=== PATIENT | male | born 1960 | race Caucasian/White ===

== ENCOUNTER 2016-05-29 18:07 | Inpatient (IN) | payer MEDICAID, OTHER ==
[~2016-05-29] VITALS: Ht 188 cm; Wt 70.5 kg
[2016-05-29 18:10] VITALS: BP 139/91; PULSE 94; RESP 18; O2SAT 99
[2016-05-29] MEDS ORDERED: Multivitamin w/Vit K Inj 10 ML, Thiamine Inj 100 MG, Folic Acid Inj 1 MG, Magnesium Sul... IV ONE ×5 (21:26)
--- NOTE | 2016-05-29 21:26 | ED.REPORT ---
HPI-Overdose/Alcohol Toxicity Date of Service May 29, 2016 ED Provider: Delta Gaviria MD Patient is a 56 year old male with a history of alcohol abuse, polysubstance abuse, and hepatitis C who presents to the ED requesting assistance detoxing from alcohol, last consuming alcohol yesterday evening. Patient reports reducing his alcohol consumption the day prior to yesterday. The patient typically consumes a half gallon of hard alcohol daily. Patient states that he last received treatment for his alcohol abuse 3-4 years ago. Patient denies previous hospital admission for alcohol withdrawal but states that he did once have an alcohol withdrawal seizure. Patient admits that he also used methamphetamine 3 days ago. The patient admits to auditory hallucinations, which he states are pleasant. He denies thoughts of harming himself or others. Patient admits to nausea, diaphoresis, shaking and anxiety but denies vomiting or diarrhea. Nursing Notes Stated Complaint: DETOX Chief Complaint: Substance Abuse Nursing Notes Reviewed: Yes Allergies: Coded Allergies: No Known Allergies (Unverified Allergy, Unknown, 05/29/16) Scheduled Amitriptyline (Amitriptyline) 50 Mg Tab 50 MG PO HS General Time Seen by Provider: 21:29 Chief Complaint Other (alcohol detox) Hx Obtained From: Patient Arrived By: Walk-in Onset Occurred: Yesterday (evening) Symptom Duration: Since onset Severity: Current: No pain currently Severity: Maximum: No pain Recent Healthcare: No recent doctor visit, No recent hospitalization Similar Sx Previous: Yes Past Medical History Past Medical History hepatitis C heroin and methamphetamine abuse alcohol abuse with prior alcohol withdrawal seizure Past Surgical History none reported Social History Admits to using methamphetamine. No longer uses IV heroin. Alcohol Use: >5 per day Drug Use: IV drugs, Meth Other Social History: Good social support, Local resident Ambulatory Status Independent Review of Systems GI: Reports: Nausea, Denies: Abdominal pain, Vomiting Skin: Reports Diaphoresis Neurologic: Reports: Shaking, Denies: Seizure Psychiatric: Reports: Anxiety, Hallucinations, auditory, Denies: Homicidal ideation, Suicidal ideation Complete sys rev & neg: except as marked. Physical Exam Initial Vital Signs Vital Signs (First) Date Time Temp Pulse Resp B/P Pulse Ox O2 Delivery O2 Flow Rate FiO2 05/29/16 18:10 36.6 94 18 139/91 99 Room Air Initial VS: Reviewed, Vital signs abnormal Head / Eyes: Atraumatic, Normocephalic, PERRL ENT: Conjunctiva normal, No scleral icterus Neck: Supple, Full range of motion Extremities: Vascular intact, Neuro intact General/Constitutional: Awake, Alert Behavior: Positive: Anxious tremulous Respiratory / Chest: Breath sounds NL, Breath sounds = bilat, No respiratory distress, No rales, No rhonchi, No wheezing Cardiovascular: Heart rate NL, Regular rhythm, Heart sounds NL Abdomen: Soft, Non-tender liver margin 2-3cm below the costal margin Neurologic: Oriented X3, Speech NL, No motor deficits, No sensory deficits Psychiatric: Affect NL, Mood NL, Not suicidal, Not homicidal Skin: Warm Color / Condition: Positive: Diaphoresis present (mild) Wrist / Hand: Neurologic intact, Vascular intact 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 All else negative. Lab Results Interpretation Result Diagram: 05/29/16214405/29/162144 Test 05/29/16 21:34 05/29/16 21:45 05/29/16 22:00 Urine Color Yellow (YELLOW) Urine Appearance Clear (CLEAR,HAZY) Urine pH 6.0 (5.0-8.0) Urine Specific [place] 1.025 (1.003-1.035) Urine Protein 30mg/dL (NEG,TRACE) Urine Glucose (UA) Negativemg/dL (NEGATIVE) Urine Ketones Tracemg/dL (NEGATIVE) Urine Occult Blood Negative (NEGATIVE) Urine Nitrite Negative (NEGATIVE) Urine Bilirubin Negative (NEGATIVE) Urine Urobilinogen Normalmg/dL (NORMAL) Urine Leukocyte Esterase Negative (NEGATIVE) Urine RBC 0-2/hpf (0-2) Urine WBC 0-5/hpf (0-5) Urine Epithelial Cells Moderate/hpf (NONE-MOD) Urine Crystals None seen (NONE SEEN) Urine Bacteria Few/hpf (NONE-FEW) Urine Hyaline Casts Occasional/lpf (NONE) Urine Granular Casts Occasional (NONE SEEN) Urine Waxy Casts None seen (NONE SEEN) Urine Red Blood Cell Casts None seen (NONE SEEN) Urine White Blood Cell Casts None seen (NONE SEEN) Urine Mucus None seen (None Seen) Urine Trichomonas None seen (NONE SEEN) Urine Yeast None (NONE SEEN) Urinalysis Comment Amorphous sediment Urine Culture Reflexed Not indicated Hold Urine Received (Received) White Blood Count 12.1th/mm3 (3.8-10.1) Red Blood Count 5.05mil/mm3 (4.40-5.80) Hemoglobin 15.9g/dL (13.8-17.2) Hematocrit 46.5% (41.0-50.0) Mean Corpuscular Volume 92.1fL (81-100) Mean Corpuscular Hemoglobin 31.5pg (27.0-35.0) Mean Corpuscular Hemoglobin Concent 34.2% (32.0-37.0) Red Cell Distribution Width 13.2% (12.3-15.4) Platelet Count 231bil/L (150-400) Neutrophils (%) (Auto) 68.7% (40-74) Lymphocytes (%) (Auto) 21.7% (14-46) Monocytes (%) (Auto) 8.3% (4-12) Eosinophils (%) (Auto) 0.9% (0-5) Basophils (%) (Auto) 0.2% (0-3) Prothrombin Time 10.6sec (8.1-12.5) Prothromb Time International Ratio 0.99ratio Sodium Level 140mEq/L (134-144) Potassium Level 4.3mEq/L (3.5-5.2) Chloride Level 97mEq/L (97-108) Carbon Dioxide Level 24mmol/L (18-29) Blood Urea Nitrogen 22mg/dL (6-24) Creatinine 1.29mg/dL (0.76-1.27) Estimat Glomerular Filtration Rate 62mL/min (>59) Glucose Level 110mg/dL (60-99) Calcium Level 10.1mg/dL (8.5-10.1) Magnesium Level 2.2mg/dL (1.6-2.6) Total Bilirubin 0.9mg/dL (0.0-1.2) Aspartate Amino Transf (AST/SGOT) 42U/L (0-50) Alanine Aminotransferase (ALT/SGPT) 44U/L (0-44) Alkaline Phosphatase 93U/L (25-150) Troponin T 0.010ug/L (0.0-0.011) Total Protein 8.8g/dL (6.4-8.4) Albumin 5.0g/dL (3.4-5.0) Lipase 31U/L (13-60) Hold Purple Top Tube Received (Received) Hold Blue Top Tube Received (Received) Hold [place] Top Tube Received (Received) Lab Results Interpretation: Elevated white blood count ECG Interpretation ECG Interpretation: Normal Sinus Rhythm, Rate 81 Time: 22:05 Interpreted by: ED physician Normal ECG Interpretation: No acute ischemic changes Re-Eval/Medical Decision Med Decision/Clinical Course 56-year-old chronic alcoholic who also uses methamphetamine. He has been absent from alcohol for about a day and a half. He is starting to go into withdrawals and desires assistance with detox. There is no bed available at sobering services. Screening labs were done and are unremarkable. He was given a banana bag and his CYS score was monitored. He had an elevated C Mehdi and was given 2 doses of Ativan. His case was discussed with Dr. Collins and he will be admitted to the hospital service for further evaluation and treatment. Re-Evaluation/Progress : Time of Eval: 00:18 Patient Status: Condition worsened Re-Evaluation/Progress Note: Rechecked the patient. He is now showing further symptoms of withdrawal and there [facility] no bed available at [facility]. He now appears to be hallucinating and is picking at himself. Discussed his recent drug use. Patient will be admitted to the hospital for further care. He understands and agrees with this plan. All questions were addressed. Consultation : Referral / Consult Name: Remington Collins MD Consulted With: Hospitalist Call Returned at: 01:33 Information Security Manager: Will see patient, Agrees with eval, Agrees with plan, Accepts admit Note: Spoke with Dr. Collins, hospitalist, who agrees to accept admit. Counseled Regarding: Diagnosis, Lab results, Need for admission Discharge & Departure Impression: Primary Impression: Alcohol withdrawal Complication of substance-induced condition: with perceptual disturbance Qualified Code: F10.232 - Alcohol dependence with withdrawal with perceptual disturbance Additional Impressions: Methamphetamine abuse Alcohol abuse Disposition: ADMITTED TO HOSPITAL Discharge Condition All VS Reviewed: Yes Condition: Stable Referrals: Guru Rome DO (PCP) Scribe Attestation Portions of this note were transcribed by Nida Borjas. I, Dr. Gaviria personally performed the history, physical exam and medical decision-making; I reviewed and confirmed the accuracy of the information in the transcribed note. Signed by: Yue [place], 05/30/2016 0134 copies to: Guru Rome Howard L MD May 29, 2016 21:25 Nida Borjas May 29, 2016 21:35
[2016-05-29] MEDS ORDERED: Ondansetron 2 mg/mL 2 mL Inj IVPUSH PRN (21:30)
[2016-05-29 21:51] LABS: BASOPHILS % (AUTO) 0.2 % (0-3); EOSINOPHILS % (AUTO) 0.9 % (0-5); MONOCYTES % (AUTO) 8.3 % (4-12); Mean Corpuscular Hemoglobin 31.5 pg (27.0-35.0); Mean Corpuscular Volume 92.1 fL (81-100); NEUTROPHILS % (AUTO) 68.7 % (40-74); Platelet Count 231 bil/L (150-400)
[2016-05-29 21:57] LABS: APPEARANCE,URINE CLEAR (CLEAR,HAZY); COLOR,URINE YELLOW (YELLOW); OCCULT BLOOD,URINE NEGATIVE (NEGATIVE); UROBILINOGEN,URINE NORMAL (NORMAL)
[2016-05-29 22:11] LABS: TROPONIN T 0.01 ug/L (0.0-0.011)
[2016-05-29 22:22] LABS: Magnesium 2.2 mg/dL (1.6-2.6)
[2016-05-29 22:31] LABS: INR 0.99 ratio
[2016-05-30] VITALS (10 sets, daily range): BP systolic 94–113; BP diastolic 44–73; PULSE 68–84; RESP 16–21; O2SAT 96–99
[2016-05-30] MEDS ORDERED: Polyethylene Glycol (PEG) 17 Gm Powder PO PRN (01:40)
[2016-05-30] MEDS ORDERED: Ondansetron 2 mg/mL 2 mL Inj IVPUSH PRN (01:40)
[2016-05-30] MEDS ORDERED: Alum-Mag Hydrox-Simeth 30 mL Suspension PO PRN (01:40)
[2016-05-30] MEDS ORDERED: Thiamine Inj 100 MG, Folic Acid Inj 1 MG, Magnesium Sulfate 50% Inj 2 GM, Multivitamins... IV ONE ×5 (02:10)
--- NOTE | 2016-05-30 02:27 | PCM.HPMED ---
Subjective Date of Service May 30, 2016 Primary Provider: Admitting Physician: Remington Collins MD Primary Care Physician: Guru Rome DO Attending Physician: Remington Collins MD Admit Status: From the Emergency Department, [facility] Telemetry Chief Complaint: Alcohol detox History of Present Illness: Patient received a dose of Ativan in the ER and thus was to somnolent to provide a history. He was arousable but speech was gibberish and incoherent. See below for ED's notes: Patient is a 56 year old male with a history of alcohol abuse, polysubstance abuse, and hepatitis C who presents to the ED requesting assistance detoxing from alcohol, last consuming alcohol yesterday evening. Patient reports reducing his alcohol consumption the day prior to yesterday. The patient typically consumes a half gallon of hard alcohol daily. Patient states that he last received treatment for his alcohol abuse 3-4 years ago. Patient denies previous hospital admission for alcohol withdrawal but states that he did once have an alcohol withdrawal seizure. Patient admits that he also used methamphetamine 3 days ago. The patient admits to auditory hallucinations, which he states are pleasant. He denies thoughts of harming himself or others. Patient admits to nausea, diaphoresis, shaking and anxiety but denies vomiting or diarrhea. Patient was monitored in the ED until he showed worsening symptoms of withdrawal and there is no bed available at [facility]. He had active hallucination and is picking at himself. He was given a dose of Ativan and a Banana bag was given. Vital signs stable. Mild leukocytosis of 12.1. CMP significant for Cr of 1.29. Breathalyzer 0.00. Urine tox dip: Positive for Marijuana, methamphetamines, and amphetamines. Review of Systems: Unable to obtain due to patient's mental status Allergies Coded Allergies: No Known Allergies (Unverified Allergy, Unknown, 05/29/16) Home Medications Per [facility] Medication Name Directions amitriptyline 25 mg tablet take 1 tablet by oral route every day at bedtime Vitamin D3 1,000 unit tablet 1 tablet by mouth daily PMH hepatitis C heroin and methamphetamine abuse alcohol abuse with prior alcohol withdrawal seizure PTSD/anxiety/depression Surgical History none reported Family History Per [facility], father with dementia. Mother with arthritis. Social History Hx Alcohol Use: Yes (daily) Hx Substance Use: Yes (Herion/meth) Smoking Status: Unknown if Ever Smoker Living Arrangement: Other (unknown) Additional Information [facility] Patient was only seen twice there. Recently on 04/10/16 for psychiatry referral and was started on Amitriptyline. . Exam Vital Signs Vital Sign - Last Date Time Temp Pulse Resp B/P Pulse Ox O2 Delivery O2 Flow Rate FiO2 05/30/16 00:03 70 20 94/62 99 Room Air 05/29/16 18:10 36.6 Exam General: Thin, disheveled. Somnolent but arousable. However talking gibberish and nonsense. In no acute distress. HEENT: Normocephalic, atraumatic. External ears without defect. Pupils equal, round, and reactive to light and accommodation. No pinpoint pupil. Anicteric sclerae, moist conjunctivae, and no lid lag. Dry mucosa. Neck: Supple. No jugular venous distension. No bruits. No lymphadenopathy or thyromegaly. Cardiovascular: Regular rate and rhythm with no murmurs, rubs, or gallops appreciated Pulmonary: Clear to auscultation bilaterally with no crackles, wheezes, or rhonchi. Normal respiratory effort with no use of accessory muscles. Abdomen: Bowel tones present. Soft, nontender, nondistended. No hepatosplenomegaly or masses appreciated. 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 No clubbing, cyanosis , edema, or lymphadenopathy appreciated. Skin: Normal temperature, turgor, and texture; no rash, ulcers, or subcutaneous nodules appreciated. Neurological: Cranial nerves grossly intact. Normal muscle strength, tone, and bulk. Reflexes, coordination, and sensory function within normal limits. No known gait impairment. Lab and Diagnostics Result Diagram: 05/29/16214405/29/162144 Assessment & Plan 56 year old male with a history of alcohol abuse, polysubstance abuse, PTSD, and hepatitis C who presents to the ED requesting assistance for alcohol detox and had signs of alcohol withdrawal. 1. Acute ongoing alcohol withdrawal, present on admission, active - Half a gallon of hard liquor daily - Last drink last night/prior to arrival - Patient received Banana bag in the emergency department - Started on CIWA protocol - Monitor Telemetry while patient is on CIWA and receiving benzodiazepine. - Continue daily thiamine and multivitamins. - Check acute hepatitis panel and ammonia 2. Mild leukocytosis, present on admission, active. - No other signs of infection. Will continue to monitor CBC and vital signs. 3. Acute Kidney Injury, present on admission, active. - Cr 1.29, which is elevated compared to baseline from 0.4-0.7. - Continue to monitor renal function. 4. PTSD/anxiety and depression, chronic. - Will resume Amitriptyline in the morning. - Follow up as outpatient. 5. History of hepatitis C, chronic. - Check hepatitis panel. - Follow up as out patient. 6. Code status: Presume FULL CODE. Need to check with the patient when he is more alert. Patient is admitted under inpatient status with expected length of stay greater than 2 midnights due to severity of presenting symptoms, risk of adverse event, and complexity of treatment plan. Pain Evaluation: Adequate Pain Control GI Prophylaxis: Proton Pump Inhibitor VTE Prophylaxis: SCDs Resuscitation Status: CPR: Attempt Resuscitation Attending Statement The patient was seen and examined together with Dr. Woodard on 05/30 and I agree with the history, exam and plan as outlined in the note above. copies to: Guru Rome Ngochanh H DO May 30, 2016 02:27 Remington Collins MD May 30, 2016 06:48
[2016-05-30] MEDS ORDERED: AMT50T PO (02:50)
[2016-05-30 04:10] LABS: BASOPHILS % (AUTO) 0.6 % (0-3); EOSINOPHILS % (AUTO) 3.4 % (0-5); MONOCYTES % (AUTO) 9.7 % (4-12); Mean Corpuscular Volume 92.3 fL (81-100); NEUTROPHILS % (AUTO) 57.5 % (40-74); Platelet Count 199 bil/L (150-400)
--- NOTE | 2016-05-30 06:46 | NUR ---
Admit/CIWA Admitted from ER for Detox, admit interview completed. CIWA assessment 2 , no medication required , pt A&O x3 , sleeping during admit process, easily awakened but constantly falling asleep. Tele SR : 67. Room air, SL . Med req only partially completed as pt does not have med list and is poor historian.
[2016-05-30] MEDS: Multivit-Miner-Folic Acid-Iron Tablet PO SCH (10:25)
[2016-05-30] MEDS ORDERED: Lactulose 20 Gm/30 mL 30 mL Syrup PO SCH (11:10)
--- NOTE | 2016-05-30 12:14 | NUR ---
CIWA/Emotions Pt CIWA score 10. Administered 1 ml Valium. Pt stated he wanted to sleep. Pt emotional this am regarding his situation. Listened and encouraged pt. Care continues.
--- NOTE | 2016-05-30 14:45 | DRSVH ---
PROCEDURE: US ABDOMEN INDICATIONS: liver disease TECHNIQUE: Real-time scanning was performed of the abdominal and retroperitoneal organs, with image documentatio n. COMPARISON: None. FINDINGS: Liver length: 16.41 cm Gallbladder Wall Thickness: 3.30 mm CHD: 2 mm CBD: 3.30 mm Spleen length: 10.61 cm Right kidney length: 11.30 cm Left kidney length: 12.01 cm Aorta(Proximal): 1.66 cm Liver: Liver is coarse in echotexture in the hepatic parenchyma is mildly echogenic. No definite dis crete focal pancreatic abnormalities are seen. Gallbladder: Normal gallbladder. Biliary ducts: Intrahepatic bile ducts are non-dilated. Extrahepatic bile duct caliber is normal. Normal is 6-7 mm or less in diameter, or 10 mm or less post-cholecystectomy. Pancreas: Visualized portions of the pancreas are sonographically normal. Spleen: Spleen is normal in size and homogeneous in echotexture. Kidneys: Kidneys are normal in size and echotexture. No hydronephrosis or nephrolithiasis. No debi d masses. Aorta: Visualized aorta is normal in caliber at less than 3 cm. Iliacs: Not visualized. IVC: Intrahepatic inferior vena cava is patent. Miscellaneous: No free abdominal fluid. IMPRESSION: 1. Coarse and echogenic appearance of the hepatic parenchyma consistent with chronic hepatic disease. No discrete masses identified. Dictated by: Tre GOMEZ Interpreted: Yi Walker MD on 05/30/2016 at 14:43 Transcribed by: MARIA EUGENIA on 05/30/2016 at 14:44 Approved by: Yi Walker M.D. on 05/31/2016 at 11:11
--- NOTE | 2016-05-30 17:39 | NUR ---
Social Work: CD Assessment D: Per EMR review, pt is a 56 year old male admitted for ETOH withdrawal. Pt is [facility] Medicaid insurance. PCP is Guru Rome DO. NOK is pt's sister, Jolene Giraldo. Advanced directives not completed- information provided by EXHIBIT DESIGNER. Readmit score is not entered at this time. EXHIBIT DESIGNER met with pt at bedside to discuss dcp and CD assessment/resources. Pt lives alone in a single-story home in [place]. Pt is I with ADLS and identifies no d/c concerns. He states that he will likely walk or catch a bus. CD history: Pt states he has been drinking since he was 12 years old when his father would give him alcohol. He has engaged in many inpatient treatment programs and is currently seeing Lemuel Langston at [facility] for outpatient counseling. Pt has experienced one ETOH related seizure. MH History: Pt is diagnosed with PTSD, depression with psychotic features. Pt denies any current or recent suicide attempts or ideations. Pt denies HI, current or past. Pt states that he has experienced hallucinations in the past however they are not commanding or violent. Natural Supports: Pt states his sister is supportive as is his counselor at [facility]. Pt intends to follow up with his counselor. Disposition: EXHIBIT DESIGNER reviewed CD resources and CDP bedside assessment option from Personally. At this time, pt is not interested in a bedside. Pt provided with OP resources and 24/7 crisis line. Pt denies any other needs and will discharge home with no further sw needs when medically stable. EXHIBIT DESIGNER to continue to follow DARIO Hannon
[2016-05-31] VITALS (9 sets, daily range): BP systolic 100–111; BP diastolic 65–74; PULSE 60–81; RESP 14–24; O2SAT 96–98
[2016-05-31 03:37] LABS: BASOPHILS % (AUTO) 0.6 % (0-3); EOSINOPHILS % (AUTO) 4.8 % (0-5); MONOCYTES % (AUTO) 7.7 % (4-12); Mean Corpuscular Hemoglobin 31.3 pg (27.0-35.0); Mean Corpuscular Volume 93.1 fL (81-100); NEUTROPHILS % (AUTO) 50.2 % (40-74); Platelet Count 191 bil/L (150-400)
[2016-05-31 04:00] LABS: Magnesium 2.1 mg/dL (1.6-2.6); Phosphorus 3.9 mg/dL (2.5-4.9)
--- NOTE | 2016-05-31 05:53 | NUR ---
CIWA CIWA score at 10 all night, pt denies any pain and is calm and cooperative.
[2016-05-31 06:10] LABS: Hepatitis A Antibody IgM Negative (Negative); Hepatitis B Core Antibody IgM Negative (Negative)
[2016-05-31] MEDS: Multivit-Miner-Folic Acid-Iron Tablet PO SCH (08:38)
--- NOTE | 2016-05-31 15:51 | PCM.PNMED ---
Subjective Date of Service May 31, 2016 Subjective 56-year-old man with history of alcohol and methamphetamine dependence presents with acute intoxication and withdrawal. Reports anxiety but no tremulousness. No GI complaints. He appears to be comfortable. States his hallucinations have abated. Last alcohol intake in p.m. of 05/28, now day #3. Exam Vital Signs Vital Sign - Last Date Time Temp Pulse Resp B/P Pulse Ox O2 Delivery O2 Flow Rate FiO2 05/31/16 12:23 36.8 81 100/65 98 Room Air 05/31/16 07:25 20 Intake and Output 05/30/16 05/30/16 05/31/16 Cumulative From/Thru 15:00 23:00 07:00 05/29/16 18:10 - 05/31/16 06:37 Intake Total 750 ml 400 ml 1150 ml Output Total 500 ml 925 ml 1425 ml Balance 250 ml -525 ml -275 ml Intake Oral 750 ml 400 ml 1150 ml Output Urine Total 500 ml 925 ml 1425 ml # Bowel Movements 0 Exam General: Middle-aged man in no acute distress HEENT: sclerae anicteric, oral mucosa moist Neck: no JVD Chest: clear to auscultation Cardiac: S1S2, no murmur Abdomen: BS normal, scaphoid, non-tender Extremities: No pitting edema Neuro: A&O, cranial nerves symmetric, motor strength 5/5, 1+ tremor, no asterixis IVs and Medications Medications Reviewed: Medications were reviewed in detail Lab and Diagnostics Ammonia 75 Result Diagram: 05/31/16 0329 05/31/16 0329 Assessment & Plan 56 year old male with a history of alcohol abuse, polysubstance abuse, PTSD, and hepatitis C who presents to the ED requesting assistance for alcohol detox and had signs of alcohol withdrawal. #. Acute ongoing alcohol withdrawal, present on admission, active. Half a gallon of hard liquor daily. Patient received Banana bag in the emergency department. - Started on CIWA protocol - Monitor Telemetry while patient is on CIWA and receiving benzodiazepine. - Continue daily thiamine and multivitamins. - Check acute hepatitis panel and ammonia Unsigned. Mild leukocytosis, present on admission, active. - No other signs of infection. Will continue to monitor CBC and vital signs. #. Acute Kidney Injury, present on admission, active. - Cr 1.29, which is elevated compared to baseline from 0.4-0.7. - Continue to monitor renal function. #. PTSD/anxiety and depression, chronic. - Will resume Amitriptyline in the morning. - Follow up as outpatient. #. History of hepatitis C, chronic. - Check hepatitis panel. - Follow up as out patient. Code status: Presume FULL CODE. Need to check with the patient when he is more alert. Patient is admitted under inpatient status with expected length of stay greater than 2 midnights due to severity of presenting symptoms, risk of adverse event, and complexity of treatment plan. GI Prophylaxis: Proton Pump Inhibitor VTE Prophylaxis: SCDs VTE Mechanical Devices: Intermittant Pneumatic CD Resuscitation Status: CPR: Attempt Resuscitation Iam Suarez MD May 31, 2016 15:51
--- NOTE | 2016-05-31 17:39 | NUR ---
CIWA/ANXIETY CIWA score has been steadily decreasing throughout the shift. Initial score of 10 at 0830, score of 8 at 1230 and score 6 at 1630. Patient's physical symptoms have lessened throughout the day, but anxiety levels remain mild to moderate. Advised patient of non-medicinal methods to decrease anxiety and he reports some relief with deep breathing and decreased stimulation. Will continue to monitor CIWA scores, and vitals.
--- NOTE | 2016-05-31 21:13 | NUR ---
CIWA/anxiety: pt. feeling very anxious, sweaty, tremors felt. 5mg valium given pt. stated "I'm concerned about being discharged tomorrow".
[2016-06-01 03:14] VITALS: BP 114/73; PULSE 64; RESP 16; O2SAT 99
[2016-06-01 04:48] LABS: BASOPHILS % (AUTO) 0.6 % (0-3); EOSINOPHILS % (AUTO) 6.4 % (0-5); Mean Corpuscular Hemoglobin 31.5 pg (27.0-35.0); Mean Corpuscular Volume 92.8 fL (81-100); NEUTROPHILS % (AUTO) 51.7 % (40-74); Platelet Count 171 bil/L (150-400)
[2016-06-01 05:07] LABS: Magnesium 2.1 mg/dL (1.6-2.6)
--- NOTE | 2016-06-01 08:15 | NUR ---
Resting Pt resting, appropriate with care, cooperative. Care continues.
[2016-06-01 08:44] VITALS: BP 105/73; PULSE 88; RESP 16; O2SAT 95
[2016-06-01] MEDS ORDERED: CHLO25CA10 PO (08:44)
--- NOTE | 2016-06-01 08:48 | PCM.DIMED ---
Discharge Instructions Date of Service Jun 01, 2016 Dates of Hospitalization May 30, 2016 at 01:52 Discharge Diagnosis Discharge Diagnosis Alcohol use disorder; alcohol withdrawal; anxiety and depression; acute kidney injury due to dehydration Medication Instructions A prescription for Librium (chlordiazepoxide) has been given to assist with her anxiety over the next few days. This is not a long-term therapy. You should pursue nonmedication approaches to anxiety management. You should continue your amitriptyline for depression and anxiety. Diet No restrictions Activity No restrictions Patient Instructions You have been given resources for alcohol cessation programs and are encouraged to follow-up with these. Follow-up plan Follow-up with your primary care provider soon. Follow-up Provider: Guru Rome DO Follow-up with PCP in: 1 week Iam Suarez MD Jun 01, 2016 08:48
[2016-06-01] MEDS ORDERED: chlordiazePOXIDE 25 mg Capsule PO ONE (08:50)
[2016-06-01] MEDS: Multivit-Miner-Folic Acid-Iron Tablet PO SCH (10:04)
--- NOTE | 2016-06-01 10:36 | NUR ---
Social Work Note: Discharge Data& Assessment: EMR reviewed. Per pt is medically improved and ready for discharge. SW met with pt at bedside to confirm the discharge plan and assess for any unmet needs. Endy Cochran is a 56 year old male admitted on 05/30/2016 for alcohol withdrawal. Per pt is medically improved and ready to discharge home. Pt was provided with a bus pass for safe transportation to the house he is staying at, rather than walking. Pt denied any other needs at this time. No other discharge needs identified. Plan: Per pt is medically ready to discharge back to prior living situation via bus. Pt denied any other needs at this time. No other discharge needs identified. DARIO Ernandez
--- NOTE | 2016-06-01 12:53 | NUR ---
Discharge Pt discharged at approximately 1253 to home via bus with bus pass provided by MARCELA. Discharge packet with educational material given, Alcohol Withdrawal and Librium, follow up appointment within one week, IV DC'd catheter intact. Patient left with all personal belongings. Escorted by WATER/WASTEWATER ENGINEER in wheelchair to front door with lunch in to go bag per pt request.
--- NOTE | 2016-06-05 21:50 | PCM.DC.MED ---
Discharge Summary Date of Service Jun 05, 2016 Dates of Hospitalization Date of Hospital Admission May 30, 2016 at 01:52 Date of Discharge: Jun 01, 2016 Providers: Admitting Physician: Remington Collins MD Primary Care Physician: Guru Rome DO Attending Physician: Remington Collins MD Diagnosis at Time of Discharge Diagnosis at Time of Discharge Alcohol use disorder; alcohol withdrawal; anxiety and depression; acute kidney injury due to dehydration Procedures XRay, CTs & MRIs PROCEDURE: US ABDOMEN IMPRESSION: 1. Coarse and echogenic appearance of the hepatic parenchyma consistent with chronic hepatic disease. No discrete masses identified. Dictated by: Tre Chandler RR Interpreted: Yi Walker MD on 05/30/2016 at 14:43 . Brief History History of Present Illness (per admission note): Patient is a 56 year old male with a history of alcohol abuse, polysubstance abuse, and hepatitis C who presents to the ED requesting assistance detoxing from alcohol, last consuming alcohol yesterday evening. Patient reports reducing his alcohol consumption the day prior to yesterday. The patient typically consumes a half gallon of hard alcohol daily. Patient states that he last received treatment for his alcohol abuse 3-4 years ago. Patient denies previous hospital admission for alcohol withdrawal but states that he did once have an alcohol withdrawal seizure. Patient admits that he also used methamphetamine 3 days ago. The patient admits to auditory hallucinations, which he states are pleasant. He denies thoughts of harming himself or others. Patient admits to nausea, diaphoresis, shaking and anxiety but denies vomiting or diarrhea. Patient was monitored in the ED until he showed worsening symptoms of withdrawal and there is no bed available at [facility]. He had active hallucination and is picking at himself. He was given a dose of Ativan and a Banana bag was given. Vital signs stable. Mild leukocytosis of 12.1. CMP significant for Cr of 1.29. Breathalyzer 0.00. Urine tox dip: Positive for Marijuana, methamphetamines, and amphetamines. . Hospital Course 56 year old male with a history of alcohol abuse, polysubstance abuse, PTSD, and hepatitis C who presents to the ED requesting assistance for alcohol detox and had signs of alcohol withdrawal. #. Acute ongoing alcohol withdrawal, present on admission, active. Half a gallon of hard liquor daily. Patient received Banana bag in the emergency department. Ammonia 74. - Started on CIWA protocol, thiamine and electrolyte supplement #. Mild leukocytosis, present on admission, active. - No other signs of infection. Monitor CBC and vital signs. #. Acute Kidney Injury, present on admission, active. Cr 1.29, on admission returned as 0.6 prior to discharge. Prerenal azotemia due to dehydration. #. PTSD/anxiety and depression, chronic. - Will resume Amitriptyline #. History of hepatitis C, chronic. Hepatitis C antibody is positive. LFTs are normal Hepatitis B negative. . Exam Vital Signs (Last) Date Time Temp Pulse Resp B/P Pulse Ox O2 Delivery O2 Flow Rate FiO2 06/01/16 08:44 36.5 88 16 105/73 95 Room Air Exam General: Middle-aged man, slightly worried affect, in no acute distress HEENT: sclerae anicteric, oral mucosa moist Neck: no JVD Chest: clear to auscultation Cardiac: S1S2, regular, no murmur Abdomen: BS normal, non-tender Extremities: No pitting edema Neuro: A&O, cranial nerves symmetric, motor strength 5/5, no tremor, no asterixis Test 05/29/16 21:34 05/29/16 21:45 05/29/16 22:00 05/30/16 04:03 Urine Color Yellow (YELLOW) Urine Appearance Clear (CLEAR,HAZY) Urine pH 6.0 (5.0-8.0) Urine Specific [place] 1.025 (1.003-1.035) Urine Protein 30mg/dL (NEG,TRACE) Urine Glucose (UA) Negativemg/dL (NEGATIVE) Urine Ketones Tracemg/dL (NEGATIVE) Urine Occult Blood Negative (NEGATIVE) Urine Nitrite Negative (NEGATIVE) Urine Bilirubin Negative (NEGATIVE) Urine Urobilinogen Normalmg/dL (NORMAL) Urine Leukocyte Esterase Negative (NEGATIVE) Urine RBC 0-2/hpf (0-2) Urine WBC 0-5/hpf (0-5) Urine Epithelial Cells Moderate/hpf (NONE-MOD) Urine Crystals None seen (NONE SEEN) Urine Bacteria Few/hpf (NONE-FEW) Urine Hyaline Casts Occasional/lpf (NONE) Urine Granular Casts Occasional (NONE SEEN) Urine Waxy Casts None seen (NONE SEEN) Urine Red Blood Cell Casts None seen (NONE SEEN) Urine White Blood Cell Casts None seen (NONE SEEN) Urine Mucus None seen (None Seen) Urine Trichomonas None seen (NONE SEEN) Urine Yeast None (NONE SEEN) Urinalysis Comment Amorphous sediment Urine Culture Reflexed Not indicated Hold Urine Received (Received) Prothrombin Time 10.6sec (8.1-12.5) Prothromb Time International Ratio 0.99ratio Troponin T 0.010ug/L (0.0-0.011) Lipase 31U/L (13-60) Hold Purple Top Tube Received (Received) Hold Blue Top Tube Received (Received) Hold [place] Top Tube Received (Received) Hepatitis A IgM Antibody Negative (Negative) Hepatitis B Surface Antigen Negative (Negative) Hepatitis B Core IgM Antibody Negative (Negative) Hepatitis C Antibody >11.0s/co ratio Hepatitis C Antibody Comment Comment (.) Hepatitis C Comment . Test 05/30/16 11:05 05/31/16 03:29 06/01/16 04:00 HIV (1&2) Ag and Ab, 4th Generation Non reactive (Non Reactive) Phosphorus Level 3.9mg/dL (2.5-4.9) Ammonia 75ug/dL (18-53) White Blood Count 6.3th/mm3 (3.8-10.1) Red Blood Count 4.73mil/mm3 (4.40-5.80) Hemoglobin 14.9g/dL (13.8-17.2) Hematocrit 43.9% (41.0-50.0) Mean Corpuscular Volume 92.8fL (81-100) Mean Corpuscular Hemoglobin 31.5pg (27.0-35.0) Mean Corpuscular Hemoglobin Concent 33.9% (32.0-37.0) Red Cell Distribution Width 13.0% (12.3-15.4) Platelet Count 171bil/L (150-400) Neutrophils (%) (Auto) 51.7% (40-74) Lymphocytes (%) (Auto) 34.0% (14-46) Monocytes (%) (Auto) 7.0% (4-12) Eosinophils (%) (Auto) 6.4% (0-5) Basophils (%) (Auto) 0.6% (0-3) Sodium Level 139mEq/L (134-144) Potassium Level 4.2mEq/L (3.5-5.2) Chloride Level 103mEq/L (97-108) Carbon Dioxide Level 24mmol/L (18-29) Blood Urea Nitrogen 17mg/dL (6-24) Creatinine 0.60mg/dL (0.76-1.27) Estimat Glomerular Filtration Rate 149mL/min (>59) Glucose Level 91mg/dL (60-99) Calcium Level 9.6mg/dL (8.5-10.1) Magnesium Level 2.1mg/dL (1.6-2.6) Total Bilirubin 0.5mg/dL (0.0-1.2) Aspartate Amino Transf (AST/SGOT) 37U/L (0-50) Alanine Aminotransferase (ALT/SGPT) 35U/L (0-44) Alkaline Phosphatase 72U/L (25-150) Total Protein 7.1g/dL (6.4-8.4) Albumin 3.8g/dL (3.4-5.0) Discharge Medications Discharge Medications Amitriptyline (Amitriptyline) 50 Mg Tab 50 MG PO HS (Reported) As needed Chlordiazepoxide (Chlordiazepoxide) 25 Mg Capsule 25 MG PO BID PRN PRN For Anxiety Prescribed by: ANIA MENA MD Additional med instructions A prescription for Librium (chlordiazepoxide) has been given to assist with her anxiety over the next few days. This is not a long-term therapy. You should pursue nonmedication approaches to anxiety management. You should continue your amitriptyline for depression and anxiety. Followup Plan Follow-up plan Follow-up with your primary care provider soon. Discharge Diet: No restrictions Discharge Activity: No restrictions Patient Instructions You have been given resources for alcohol cessation programs and are encouraged to follow-up with these. Follow-up Provider: Guru Rome DO Follow-up with PCP in: 1 week Time spent 35 minutes copies to: Guru Rome Jeffrey W MD Jun 05, 2016 21:50
== END 2016-06-01 12:55 | disposition home or self-care (01) | DRG 897 ==
LOC: SED 18:07 → PCC 05-30 01:52
PROVIDERS: ADMIT Hospitalist; ATTEND Hospitalist
DX: F10.232 Alcohol dependence with withdrawal with perceptual disturbance (principal); N17.9 Acute kidney failure, unspecified; F19.10 Other psychoactive substance abuse, uncomplicated; F43.10 Post-traumatic stress disorder, unspecified; F41.9 Anxiety disorder, unspecified; F32.9 Major depressive disorder, single episode, unspecified; B18.2 Chronic viral hepatitis C; E86.0 Dehydration; D72.829 Elevated white blood cell count, unspecified